=== PATIENT | male | born 1970 | race Caucasian/White ===

== ENCOUNTER 2019-11-24 15:15 | Outpatient (CLI) | payer OTHER ==
--- NOTE | 2019-11-24 16:26 | SLEEP CARE CONSULTATION ---
Information from patient questionnaire entered by Claire Nunn. I have reviewed and concur with the information entered by Claire Nunn. This document represents the service I personally performed and the decisions made by me, Brando Schreiber MD, [facility]. History of Present Illness Service Date and Time: 11/24/2019 1515 Reason for Visit: New patient, Previously diagnosed sleep apnea, sleep apnea on CPAP therapy Chief Complaint: reports: Other (establish care for prescription) Date of Onset: 2017 Usual bedtime: 2230 Time it takes to fall asleep: not sure Snores at night: Yes (once upon a time) Observed to quit breathing while asleep: Yes Sleeps alone due to snoring: No Number of times waking at night: 1-2 Toss, Turn, or Twitch while sleeping: Yes Recalls having dreams: Yes Usually gets out of bed at: [id number] Feels refreshed in the morning: No Morning headache: No Sleepy or fatigued during the day: Yes Ever fallen asleep while driving: No Takes day naps: Yes (sometimes) Dreams during day naps: Yes Prior sleep studies: Yes Year and Where: [facility] [place], [place] Type of Sleep Study: Polysomnography Additional HPI information: I had the pleasure of seeing Ms. Ramírez today regarding obstructive sleep apnea- hypopnea. As you know, she is a 49 year old lady who was diagnosed with the sleep-disordered breathing in [place], [place] in 2018. The AHI was 81.0 and ricardo oxygen saturation of 62%. She was prescribed a CPAP device set at 10 cmH2O. She uses the ResMed AirSense 10 every night and all night. The compliance data show usage in 30 out of the past 30 nights, averaging 7 hours a night. The residual AHI is 0.95 and average air leak is 9 L/minute. She wears a ResMed Mirage FX nasal mask. She gets her supplies from [employer]. She finds the treatment very beneficial. Subjective Initial [place] Sleepiness Scale score: 15 (in 2019) Past Medical History Past Medical History: reports: Hypertension, Diabetes, Gout, Anxiety, Depression, Attention deficit Social History The patient's occupation is not employed. Patient is and lives in [place]. Have you smoked in the past 12 months: No Cigarettes per day (20/pack): 10 Quit date: 2017 Alcohol use: No Caffeine use: Yes Caffeine amount and frequency: coffee in morning only, 1/2 cup Family History Family history of sleep disordered breathing: Yes Family Hx Sleep Apnea: Father: Snoring Allergies and Home Medications Drug allergies reviewed: Yes (morphine and naproxen) Home medication list reviewed: Yes (gabapentin, zaleplon, Toprol, losartan, metformin, allopurinol, Tricor, Sly) Review of Systems Weight gain over past 5 years: 20+ Cardiovascular: reports: high blood pressure Respiratory: denies: shortness of breath, wheeze, sputum production, chronic cough, other Gastrointestinal: reports: nausea, diarrhea Urinary: denies: incontinence, frequency, urgency, impotence, other Neurological: denies: headaches, seizure, head trauma, disorientation, speech dysfunction, gait or balance problems, fainting or unconsciousness, other Psychiatric: reports: Attention Deficit Hyperactivity, anxiety, depression Ear/Nose/Throat: reports: wisdom teeth removed Endocrine: reports: sluggishness, too hot or cold Musculoskeletal: reports: neck pain Immunologic: denies: sneezing, rash, itching, allergies to food or environment, other Physical Exam Vital signs obtained and entered by: To minimize the risk of COVID-19 exposure, detailed exam was not performed. Height: 5 ft 9 in Weight: 260 lb Body Mass Index: 38.4 BMI Classification: Obese Impression and Plan IMPRESSION: 1. Obstructive Sleep Apnea-Hypopnea Syndrome, severe, as previously diagnosed. The patient has had good treatment compliance. The current pressure setting appears effective and comfortable. The patient experiences improvement on the treatment. Narrow oropharynx and obesity are common predisposing factors for obstructive sleep apnea-hypopnea syndrome. No pressure adjustment is necessary. Pathophysiology of sleep-disordered breathing was discussed. I will order new supplies for her. Plan: 1. Prescription made for supplies. 2. Try newer masks, e.g. ResMed N30i mask, P30i nasal pillows, and DreamWisp. 3. Avoid alcohol, sedative and muscle relaxant around bedtime. 4. Attempt to lose weight. 5. Return for follow up in a year or earlier if there is any problem. Visit Type: In Office Location of Provider: Office Time Spent with Patient (minutes): 15 Provider Statement: I spent 100% of the Face to Face Visit with the patient with greater than 50% spent counseling the patient and coordination of care.
== END 2019-11-24 15:16 | disposition home or self-care (01) ==
LOC: SC 15:15
PROVIDERS: ATTEND Internal Medicine Pulmonary Disease
DX: G47.33 Obstructive sleep apnea (adult) (pediatric) (principal); E66.9 Obesity, unspecified; Z68.38 Body mass index [BMI] 38.0-38.9, adult
CPT/HCPCS: 99203; 99212

== ENCOUNTER 2020-12-12 12:26 | Outpatient (CLI) | payer OTHER ==
--- NOTE | 2020-12-12 13:16 | SLEEP CARE CONSULTATION ---
Information from patient questionnaire entered by Claire Nunn. I have reviewed and concur with the information entered by Claire Nunn. This document represents the service I personally performed and the decisions made by me, Brando Schreiber MD, [facility]. History of Present Illness Service Date and Time: 12/12/2020 1226 Previous diagnosis: Severe, Obstructive Sleep Apnea-Hypopnea Syndrome AHI: 81 Reason for follow up: annual Equipment type: CPAP Equipment obtained from: [employer] Mask style: Nasal Prior sleep studies: Yes Year and Where: 2017 [facility] [place] Type of Sleep Study: Polysomnography HPI additional information: Ms. Ramírez returned today for follow up of nasal CPAP therapy. She was diagnosed to have severe obstructive sleep apnea-hypopnea syndrome. The patient gets her supplies from [employer]. She wears a Mirage FX nasal mask. She tried a ResMed N30i mask but did not like it. She reports using the device nightly and all through the night. The compliance report shows usage in 89 nights out of the past 90 nights, averaging 7.5 hours a night. She complained of nasal congestion and frontal headache. She thinks that the pressure of 10 cmH2O may be too low.. On the CPAP therapy she notices improvement in her sleep quality, and that she wakes up feeling fresher in the morning and more awake/alert during the day. The [place] Sleepiness Scale score 11. Her notices no snore at all. Th e average residual AHI is 1.5;: and air leak, 1.2 L/min. Sleep Study - Results Prior sleep studies: Yes Year and Where: [facility] [place], [place] CPAP Compliance Data - Data Reviewed with Patient Average duration of nightly device use: 7 hours 32 minutes Compliance rate %: 99 Current pressure setting (cmH2O): 10 Humidity settin Average residual AHI: 1.5 Subjective Patient concerns: reports: mask leak noise, nasal congestion, other (headache) Current pressure setting perceived as: too low Initial [place] Sleepiness Scale score: 15 (in 2019) Current [place] Sleepiness Scale score: 11 Allergies and Home Medications Drug allergies reviewed: Yes Home medication list reviewed: Yes Review of Systems Review of systems same as previous: Yes Physical Exam Height: 5 ft 9 in Weight: 257 lb Weight change since last visit: -3 lb Body Mass Index: 37.9 BMI Classification: Obese Impression and Plan IMPRESSION: 1. Obstructive Sleep Apnea-Hypopnea Syndrome, severe (AHI was 81 in [place] in 2018), with the patient continuing to do well on nasal CPAP therapy. She has excellent compliance and significant clinical improvement. The current pressure appears effective and comfortable. Overall, she is very satisfied with treatment and plans to continue with it long-term. Because of headache, I recommend trying a lower pressure setting. She does not want to increase the heated humidifier setting because she already feels that the air is too heavy and moist. PLAN: 1. CPAP set to autoCPAP mode with pressure range 7 - 10 cmH2O. 2. Try to lose weight 3. Return in one year for follow up or earlier if there is any problem with the treatment. She will monitor the residual AHI from her phone. Follow up with Sleep Care in: 1 year Follow up recommended for: Weight management Visit Type: In Office Time Spent with Patient (minutes): 15 Provider Statement: I spent 100% of the Face to Face Visit with the patient with greater than 50% spent counseling the patient and coordination of care.
== END 2020-12-12 12:27 | disposition home or self-care (01) ==
LOC: SC 12:26
PROVIDERS: ATTEND Internal Medicine Pulmonary Disease
DX: G47.33 Obstructive sleep apnea (adult) (pediatric) (principal); E66.9 Obesity, unspecified; Z68.37 Body mass index [BMI] 37.0-37.9, adult
CPT/HCPCS: 99212

== ENCOUNTER 2022-02-16 10:27 | Outpatient (CLI) | payer OTHER ==
[2022-02-16 11:40] VITALS: BP 130/78
--- NOTE | 2022-02-16 11:40 | SLEEP CARE CONSULTATION ---
Information from patient questionnaire entered by Jessica Pruitt. I have reviewed and concur with the information entered by Jessica Pruitt. This document represents the service I personally performed and the decisions made by me, Tayler De La Garza ARNP. History of Present Illness Service Date and Time: 02/16/2022 1027 Previous diagnosis: Very Severe, Obstructive Sleep Apnea-Hypopnea Syndrome AHI: 81 Reason for follow up: first compliance, annual (LAST SEEN 11/2020) Equipment type: CPAP (RESMED Airsense 10, last updated 06/2017) Equipment obtained from: [employer] ([employer] supplies) Mask style: Nasal Mask brand: Resmed (Mirage FX) Backup mask available: No (will keep old mask when replaced) Last cushion change: Saturday Prior sleep studies: Yes Year and Where: [facility] [place], [place] Type of Sleep Study: Polysomnography HPI additional information: MADHURI GALINDO was diagnosed to have very severe, AHI 81, obstructive sleep apnea-hypopnea syndrome and returned today for CPAP therapy annual follow-up. Sleep Study - Results Type of Sleep Study: Polysomnography Prior sleep studies: Yes Year and Where: [facility] [place] CPAP Compliance Data - Data Reviewed with Patient Average duration of nightly device use: 8 HRS 26 MIN Compliance rate %: 98 (08/20/21-02/15/22; 177/180 days used) Current pressure setting (cmH2O): 9-10 Average residual AHI: 1.7 Central apnea: 0.1 Obstructive apnea: 1.5 Subjective Missed days of use due to: reports: illness, other (power outage) Patient concerns: reports: mask discomfort, other (headache). denies: aerophagia, air blowing in eyes, mask leak noise, condensation in mask/hose, nasal congestion, dry mouth, nose, throat, epistaxis Observed to snore while using device: Yes (possibly lately, not waking her up) Current pressure setting perceived as: comfortable On therapy, patient: reports: other (does not seem to be working lately) Initial [place] Sleepiness Scale score: 15 (in 2019) Current [place] Sleepiness Scale score: 13 (02/16/22) Allergies and Home Medications Drug allergies reviewed: Yes (NKDA) Home medication list reviewed: Yes (Prozac, Trazodone) Review of Systems Review of systems same as previous: Yes (daytime fatigue increased over last year) Physical Exam Vital signs obtained and entered by: JESSICA Garrido MA Blood Pressure: 130/78 (LEFT ARM) Cuff size: long Heart Rate: 78 O2 Saturation: 97 Height: 5 ft 9 in Weight: 244 lb 12.8 oz Body Mass Index: 36.1 BMI Classification: Obese Impression and Plan 1. Obstructive Sleep Apnea-Hypopnea Syndrome, very severe, with good treatment compliance and good apnea control. On CPAP therapy, the patient has better sleep quality and is more rested overall. Patient states she is using the same nasal mask Mirage FX but this last year it has become more uncomfortable to use. The harder part on the cushion seems to be different. I showed her a DreamWisp mask and she thought this might be more comfortable and I will add this to her DME supply update. She has been having more headaches this last year but feels her pressure is comfortable. She is not tightening her mask too much. She also has some sinus issues which may be contributing. I will update her supply prescription with her DME. She is eligible for a machine upgrade in 06/2022. She voiced understanding. Patient's apnea severity and rationale for treatment to reduce apnea, improve sleep quality and reduce cardiovascular and cerebrovascular events was reviewed. I also reviewed the benefit of consistent device use of CPAP for hypertension, diabetes, depression, anxiety and attention deficit. 2. Obesity, unspecified. Currently patients BMI is 36.1. Obesity increases the risk of apnea, CPAP pressure requirements and overall health risks especially cardiovascular and diabetes. Thus patient is advised to lose weight. * Continue auto CPAP pressure at 9-10 cmH2O * Mask refitting for DreamWisp nasal mask * Update supplies * Notify me if snoring with mask or feeling that the pressure is too much or too little * Attempt to lose weight * Call this office if any problems using CPAP * Return for follow up in 1 year, or sooner if concerns arise Counseling Topics: Spare mask, Weight loss health impact Visit Type: In Office Time Spent with Patient (minutes): 23 Provider Statement: I spent 100% of the Face to Face Visit with the patient with greater than 50% spent counseling the patient and coordination of care.
== END 2022-02-16 10:28 | disposition home or self-care (01) ==
LOC: SC 10:27
PROVIDERS: ATTEND Nurse Practitioner Family
DX: G47.33 Obstructive sleep apnea (adult) (pediatric) (principal); E66.9 Obesity, unspecified; Z68.36 Body mass index [BMI] 36.0-36.9, adult
CPT/HCPCS: 99212; 99213

== ENCOUNTER 2022-10-24 09:04 | Outpatient (CLI) | payer OTHER ==
--- NOTE | 2022-10-24 09:55 | Sleep Patient Instructions ---
Sleep Center Visit Summary - Patient Visit Information Reason for Visit: Eight month followup for PAP therapy - Patient Instructions Additional Instructions: You were here for follow up of CPAP therapy. You will be continued on CPAP therapy with pressure at 7-10 cmH2O. We are updating your CPAP machine. Please call to schedule a follow-up compliance visit when you have your new device. You should follow up with sleep care one month after obtaining new device. You may contact us sooner for any questions or concerns. - Clinic Information Contact: [facility] [address] [place] [address] [email or web address] T: [phone]
[2022-10-24 09:58] VITALS: BP 128/74; O2SAT 97
--- NOTE | 2022-10-24 09:58 | SLEEP CARE CONSULTATION ---
Information from patient questionnaire entered by Jessica Pruitt. I have reviewed and concur with the information entered by Jessica Pruitt. This document represents the service I personally performed and the decisions made by me, Tayler De La Garza ARNP. History of Present Illness Service Date and Time: 10/24/2022 0904 Previous diagnosis: Very Severe, Obstructive Sleep Apnea-Hypopnea Syndrome AHI: 81 Reason for follow up: other (8 MONTH F/U) Equipment type: CPAP (RESMED Airsense 10, last updated 06/2017) Equipment obtained from: [employer] (getting supplies) Mask style: Nasal (Mirage FX, over the nose) Backup mask available: No (will keep old mask when replaced) Last cushion change: a while Prior sleep studies: Yes Year and Where: [facility] [place], [place] Type of Sleep Study: Polysomnography HPI additional information: MADHURI GALINDO was diagnosed to have very severe, AHI 81, obstructive sleep apnea-hypopnea syndrome and returned today for CPAP therapy eight month follow- up. Sleep Study - Results Type of Sleep Study: Polysomnography Prior sleep studies: Yes Year and Where: [facility] CPAP Compliance Data - Data Reviewed with Patient Average duration of nightly device use: 8 HRS 11 MIN Compliance rate %: 97 (04/24/22-10/20/22; 176/180 days used) Current pressure setting (cmH2O): 7-10 Average residual AHI: 1.6 Central apnea: 0.1 Obstructive apnea: 1.3 Average large leak: 0.5 L/min Subjective Patient concerns: reports: mask discomfort (just hard to get comfortable), nasal congestion (lots of sinus), other (headache, thinks it is sinus related). denies: aerophagia, air blowing in eyes, mask leak noise, condensation in mask/hose, dry mouth, nose, throat, epistaxis Observed to snore while using device: No Current pressure setting perceived as: comfortable On therapy, patient: reports: sleeping better, awakening more refreshed, being more awake and alert during the day, more rested overall. denies: drowsiness wh ile driving Initial [place] Sleepiness Scale score: 15 (in 2019) Current [place] Sleepiness Scale score: 13 (10/24/22) Allergies and Home Medications Known drug allergies: No Drug allergies reviewed: Yes Home medication list reviewed: Yes (Estradiol) Allergy and home medication list: Allergies No Known Drug Allergies Allergy (Verified 10/23/22 09:06) Review of Systems Review of systems same as previous: Yes (no changes) Physical Exam Vital signs obtained and entered by: JESSICA Garrido MA Blood Pressure: 128/74 (LEFT ARM) Cuff size: regular Heart Rate: 71 O2 Saturation: 97 Height: 5 ft 9 in Weight: 245 lb 12.8 oz Body Mass Index: 36.3 BMI Classification: Obese Impression and Plan 1. Obstructive Sleep Apnea-Hypopnea Syndrome, very severe, with good treatment compliance and good apnea control. On CPAP therapy, the patient has better sleep quality and is more rested overall. Patient has significant improvement of their sleep apnea and is satisfied with current CPAP therapy. Her Airsense 10 was last replaced in 06/2017. The patients CPAP is over 5 years old and of reasonable use. Thus, the CPAP will be updated. A DWO prescription will be made. Compliance guidelines for new device and follow up discussed. Patient's apnea severity and rationale for treatment to reduce apnea, improve sleep quality and reduce cardiovascular and cerebrovascular events was reviewed. I also reviewed the benefit of consistent device use of CPAP for hypertension, diabetes, depression/anxiety, and attention deficit. 2. Obesity, unspecified. Currently patients BMI is 36.3. Obesity increases the risk of apnea, CPAP pressure requirements and overall health risks especially cardiovascular and diabetes. Thus patient is advised to lose weight. * Continue auto CPAP pressure at 7-10 cmH2O * Update machine * Update supplies * Notify me if snoring with mask or feeling that the pressure is too much or too little * Attempt to lose weight * Call this office if any problems using CPAP * Return for follow up one month after obtaining new device, or sooner if concerns arise Counseling Topics: Spare mask, Weight loss health impact Visit Type: In Office Time Spent with Patient (minutes): 20 Provider Statement: I spent 100% of the Face to Face Visit with the patient with greater than 50% spent counseling the patient and coordination of care.
== END 2022-10-24 09:05 | disposition home or self-care (01) ==
LOC: SC 09:04
PROVIDERS: ATTEND Nurse Practitioner Family
DX: G47.33 Obstructive sleep apnea (adult) (pediatric) (principal); E66.9 Obesity, unspecified; Z68.36 Body mass index [BMI] 36.0-36.9, adult
CPT/HCPCS: 99212; 99213